=== PATIENT | male | born 1935 | race Caucasian/White ===

== ENCOUNTER 2016-05-17 08:34 | Outpatient (RCR) | payer MEDICARE ==
[2016-05-17 08:32] LABS: MEAN CORPUSCULAR HGB CONC 34.3 g/dL (31.0-37.0); MEAN PLATELET VOLUME 10.2 FL (6.0-9.5); PLATELET COUNT 155 10^3uL (150-450); WHITE BLOOD COUNT 2.88 10^3uL (4.0-11.0)
[~2016-05-17 08:34] MED LIST: ASPI-586 PO; CEPH-507 PO; CLOP75TA3 PO; INDA1.25 PO; LISI10TA PO; OMG1KC PO; VIT1CAPS16 PO; VIT1TABL57 PO; VITAMIN; [UNRECOGNIZED DRUG - CODE] PO
[2016-05-17 08:39] LABS: MEAN CORPUSCULAR HEMOGLOBIN 34.2 PG (26.0-34.0); MEAN CORPUSCULAR VOLUME 100 FL (80-100)
[2016-05-17 09:41] LABS: BAND NEUTROPHILS % 0 % (0-6); SEGMENTED NEUTROPHILS % 20 % (51-67)
[2016-05-17 09:42] LABS: ANISOCYTOSIS SLIGHT; EOSINOPHILS % 6 % (0-4); LYMPHOCYTES # 1.5 #; MONOCYTES # 0.4 #; MONOCYTES % 19 % (3-11); RBC MORPH SEE REFERENCE (NORMAL); TOTAL CELLS COUNTED 100
[2016-05-31 08:30] LABS: MEAN PLATELET VOLUME 11.6 FL (6.0-9.5); PLATELET COUNT 149 10^3uL (150-450); WHITE BLOOD COUNT 2.63 10^3uL (4.0-11.0)
[2016-05-31 08:35] LABS: MEAN CORPUSCULAR HEMOGLOBIN 33.9 PG (26.0-34.0); MEAN CORPUSCULAR VOLUME 100 FL (80-100)
[2016-05-31 08:57] LABS: ANISOCYTOSIS SLIGHT; BAND NEUTROPHILS % 0 % (0-6); EOSINOPHILS % 6 % (0-4); LYMPHOCYTES # 1.4 #; MONOCYTES # 0.4 #; MONOCYTES % 19 % (3-11); RBC MORPH SEE REFERENCE (NORMAL); SEGMENTED NEUTROPHILS % 20 % (51-67); TOTAL CELLS COUNTED 100
[2016-06-14 08:07] LABS: MEAN CORPUSCULAR HGB CONC 34.1 g/dL (31.0-37.0); PLATELET COUNT 152 10^3uL (150-450); WHITE BLOOD COUNT 2.58 10^3uL (4.0-11.0)
[2016-06-14 08:23] LABS: MEAN CORPUSCULAR VOLUME 100 FL (80-100)
[2016-06-14 08:37] LABS: BAND NEUTROPHILS % 0 % (0-6); EOSINOPHILS % 3 % (0-4); LYMPHOCYTES # 1.2 #; MONOCYTES # 0.3 #; MONOCYTES % 17 % (3-11); SEGMENTED NEUTROPHILS % 31 % (51-67); TOTAL CELLS COUNTED 100
[2016-06-14 08:38] LABS: ANISOCYTOSIS SLIGHT; RBC MORPH SEE REFERENCE (NORMAL)
[2016-06-28 08:29] LABS: MEAN CORPUSCULAR HGB CONC 33.9 g/dL (31.0-37.0); MEAN PLATELET VOLUME 12.4 FL (6.0-9.5); PLATELET COUNT 150 10^3uL (150-450); WHITE BLOOD COUNT 2.16 10^3uL (4.0-11.0)
[2016-06-28 09:26] LABS: MEAN CORPUSCULAR HEMOGLOBIN 33.7 PG (26.0-34.0); MEAN CORPUSCULAR VOLUME 99 FL (80-100)
[2016-06-28 09:27] LABS: BAND NEUTROPHILS % 1 % (0-6); EOSINOPHILS % 7 % (0-4); LYMPHOCYTES # 1.1 #; MONOCYTES # 0.5 #; MONOCYTES % 25 % (3-11); SEGMENTED NEUTROPHILS % 14 % (51-67); TOTAL CELLS COUNTED 100
[2016-06-28 09:28] LABS: RBC MORPH NORMAL (NORMAL)
[2016-07-05 09:38] LABS: MEAN CORPUSCULAR HGB CONC 34.2 g/dL (31.0-37.0); MEAN PLATELET VOLUME 11.3 FL (6.0-9.5); PLATELET COUNT 130 10^3uL (150-450); WHITE BLOOD COUNT 2.25 10^3uL (4.0-11.0)
[2016-07-05 09:40] LABS: MEAN CORPUSCULAR VOLUME 99 FL (80-100)
[2016-07-05 09:47] LABS: BAND NEUTROPHILS % 0 % (0-6); EOSINOPHILS % 1 % (0-4); LYMPHOCYTES # 1.3 #; MONOCYTES # 0.2 #; MONOCYTES % 12 % (3-11); SEGMENTED NEUTROPHILS % 26 % (51-67); TOTAL CELLS COUNTED 100
[2016-07-05 09:48] LABS: RBC MORPH NORMAL (NORMAL)
[2016-07-12 09:31] LABS: MEAN CORPUSCULAR HGB CONC 33.4 g/dL (31.0-37.0); MEAN PLATELET VOLUME 11.3 FL (6.0-9.5); PLATELET COUNT 142 10^3uL (150-450); WHITE BLOOD COUNT 2.37 10^3uL (4.0-11.0)
[2016-07-12 09:43] LABS: MEAN CORPUSCULAR HEMOGLOBIN 33.3 PG (26.0-34.0); MEAN CORPUSCULAR VOLUME 100 FL (80-100)
[2016-07-12 11:17] LABS: BAND NEUTROPHILS % 0 % (0-6); EOSINOPHILS % 4 % (0-4); LYMPHOCYTES # 1.1 #; MONOCYTES # 0.5 #; MONOCYTES % 26 % (3-11); RBC MORPH NORMAL (NORMAL); SEGMENTED NEUTROPHILS % 22 % (51-67); TOTAL CELLS COUNTED 100
[2016-07-19 08:19] LABS: MEAN CORPUSCULAR HGB CONC 33.7 g/dL (31.0-37.0); MEAN PLATELET VOLUME 10.7 FL (6.0-9.5); PLATELET COUNT 134 10^3uL (150-450); WHITE BLOOD COUNT 2.33 10^3uL (4.0-11.0)
[2016-07-19 08:40] LABS: MEAN CORPUSCULAR HEMOGLOBIN 33.5 PG (26.0-34.0); MEAN CORPUSCULAR VOLUME 99 FL (80-100)
[2016-07-19 08:45] LABS: BAND NEUTROPHILS % 2 % (0-6); EOSINOPHILS % 2 % (0-4); LYMPHOCYTES # 1.2 #; MONOCYTES # 0.3 #; MONOCYTES % 13 % (3-11); RBC MORPH NORMAL (NORMAL); SEGMENTED NEUTROPHILS % 30 % (51-67); TOTAL CELLS COUNTED 100
[2016-07-26 08:47] LABS: MEAN CORPUSCULAR HGB CONC 33.2 g/dL (31.0-37.0); MEAN PLATELET VOLUME 10.9 FL (6.0-9.5); PLATELET COUNT 143 10^3uL (150-450); WHITE BLOOD COUNT 2.96 10^3uL (4.0-11.0)
[2016-07-26 09:06] LABS: MEAN CORPUSCULAR HEMOGLOBIN 33.5 PG (26.0-34.0); MEAN CORPUSCULAR VOLUME 101 FL (80-100)
[2016-07-26 09:15] LABS: BAND NEUTROPHILS % 0 % (0-6); EOSINOPHILS % 7 % (0-4); LYMPHOCYTES # 1.3 #; MONOCYTES # 0.5 #; MONOCYTES % 23 % (3-11); RBC MORPH NORMAL (NORMAL); SEGMENTED NEUTROPHILS % 26 % (51-67); TOTAL CELLS COUNTED 100
[2016-08-03 08:34] LABS: MEAN CORPUSCULAR HGB CONC 33.6 g/dL (31.0-37.0); MEAN PLATELET VOLUME 10.7 FL (6.0-9.5); PLATELET COUNT 131 10^3uL (150-450); WHITE BLOOD COUNT 2.18 10^3uL (4.0-11.0)
[2016-08-03 08:38] LABS: MEAN CORPUSCULAR HEMOGLOBIN 33.9 PG (26.0-34.0); MEAN CORPUSCULAR VOLUME 101 FL (80-100)
[2016-08-03 08:53] LABS: BAND NEUTROPHILS % 0 % (0-6); EOSINOPHILS % 2 % (0-4); LYMPHOCYTES # 1.3 #; MONOCYTES # 0.2 #; MONOCYTES % 12 % (3-11); RBC MORPH NORMAL (NORMAL); SEGMENTED NEUTROPHILS % 22 % (51-67); TOTAL CELLS COUNTED 100
[2016-08-03 13:14] LABS: ANION GAP 14.9 MEQ/L (3-15)
[2016-08-10 08:40] LABS: MEAN CORPUSCULAR HGB CONC 34.2 g/dL (31.0-37.0); PLATELET COUNT 136 10^3uL (150-450); WHITE BLOOD COUNT 2.48 10^3uL (4.0-11.0)
[2016-08-10 08:51] LABS: MEAN CORPUSCULAR HEMOGLOBIN 34.1 PG (26.0-34.0); MEAN CORPUSCULAR VOLUME 100 FL (80-100)
[2016-08-10 09:45] LABS: BAND NEUTROPHILS % 1 % (0-6); EOSINOPHILS % 4 % (0-4); LYMPHOCYTES # 1.3 #; MONOCYTES # 0.4 #; MONOCYTES % 18 % (3-11); RBC MORPH NORMAL (NORMAL); SEGMENTED NEUTROPHILS % 18 % (51-67); TOTAL CELLS COUNTED 100
== END 2016-08-15 | disposition home or self-care (01) ==
LOC: LAB 08:34
PROVIDERS: ATTEND Internal Medicine Hematology & Oncology
DX: D61.818 Other pancytopenia (principal); D46.A Refractory cytopenia with multilineage dysplasia; N18.9 Chronic kidney disease, unspecified
CPT/HCPCS: 36415; 80048; 85025

== ENCOUNTER 2016-08-23 09:01 | Outpatient (RCR) | payer MEDICARE ==
[2016-08-16 08:31] LABS: MEAN CORPUSCULAR HGB CONC 34.3 g/dL (31.0-37.0); MEAN PLATELET VOLUME 10.9 FL (6.0-9.5); PLATELET COUNT 130 10^3uL (150-450); WHITE BLOOD COUNT 2.58 10^3uL (4.0-11.0)
[2016-08-16 08:33] LABS: MEAN CORPUSCULAR HEMOGLOBIN 34.2 PG (26.0-34.0); MEAN CORPUSCULAR VOLUME 100 FL (80-100)
[2016-08-16 08:41] LABS: BAND NEUTROPHILS % 0 % (0-6); EOSINOPHILS % 3 % (0-4); LYMPHOCYTES # 1.3 #; MONOCYTES # 0.3 #; MONOCYTES % 17 % (3-11); RBC MORPH NORMAL (NORMAL); SEGMENTED NEUTROPHILS % 28 % (51-67); TOTAL CELLS COUNTED 100
[2016-08-23 09:10] LABS: MEAN PLATELET VOLUME 11.1 FL (6.0-9.5); PLATELET COUNT 142 10^3uL (150-450); WHITE BLOOD COUNT 3.06 10^3uL (4.0-11.0)
[2016-08-23 09:12] LABS: MEAN CORPUSCULAR HEMOGLOBIN 33.9 PG (26.0-34.0); MEAN CORPUSCULAR VOLUME 100 FL (80-100)
[2016-08-23 09:33] LABS: BAND NEUTROPHILS % 1 % (0-6); EOSINOPHILS % 5 % (0-4); LYMPHOCYTES # 1.5 #; MONOCYTES # 0.6 #; MONOCYTES % 21 % (3-11); SEGMENTED NEUTROPHILS % 23 % (51-67); TOTAL CELLS COUNTED 100
[2016-08-23 09:34] LABS: ANISOCYTOSIS SLIGHT; RBC MORPH SEE REFERENCE (NORMAL)
[2016-08-30 08:38] LABS: MEAN CORPUSCULAR HGB CONC 34.1 g/dL (31.0-37.0); MEAN PLATELET VOLUME 10.5 FL (6.0-9.5); PLATELET COUNT 125 10^3uL (150-450); WHITE BLOOD COUNT 2.06 10^3uL (4.0-11.0)
[2016-08-30 08:58] LABS: MEAN CORPUSCULAR HEMOGLOBIN 34.2 PG (26.0-34.0); MEAN CORPUSCULAR VOLUME 100 FL (80-100)
[2016-08-30 09:13] LABS: BAND NEUTROPHILS % 1 % (0-6); EOSINOPHILS % 7 % (0-4); MONOCYTES # 0.4 #; MONOCYTES % 19 % (3-11); RBC MORPH NORMAL (NORMAL); SEGMENTED NEUTROPHILS % 25 % (51-67); TOTAL CELLS COUNTED 100
[2016-09-06 08:03] LABS: MEAN CORPUSCULAR HGB CONC 33.6 g/dL (31.0-37.0); MEAN PLATELET VOLUME 11.8 FL (6.0-9.5); PLATELET COUNT 153 10^3uL (150-450); WHITE BLOOD COUNT 2.75 10^3uL (4.0-11.0)
[2016-09-06 08:20] LABS: MEAN CORPUSCULAR HEMOGLOBIN 33.7 PG (26.0-34.0); MEAN CORPUSCULAR VOLUME 100 FL (80-100)
[2016-09-06 08:28] LABS: BAND NEUTROPHILS % 2 % (0-6); EOSINOPHILS % 4 % (0-4); LYMPHOCYTES # 1.1 #; MONOCYTES # 0.4 #; MONOCYTES % 21 % (3-11); RBC MORPH NORMAL (NORMAL); SEGMENTED NEUTROPHILS % 26 % (51-67); TOTAL CELLS COUNTED 100
[2016-09-13 08:01] LABS: MEAN CORPUSCULAR HGB CONC 33.9 g/dL (31.0-37.0); MEAN PLATELET VOLUME 10.7 FL (6.0-9.5); PLATELET COUNT 130 10^3uL (150-450); WHITE BLOOD COUNT 2.56 10^3uL (4.0-11.0)
[2016-09-13 08:03] LABS: MEAN CORPUSCULAR VOLUME 100 FL (80-100)
[2016-09-13 08:14] LABS: BAND NEUTROPHILS % 0 % (0-6); EOSINOPHILS % 1 % (0-4); LYMPHOCYTES # 1.6 #; MONOCYTES # 0.1 #; MONOCYTES % 7 % (3-11); SEGMENTED NEUTROPHILS % 27 % (51-67); TOTAL CELLS COUNTED 100
[2016-09-13 08:15] LABS: RBC MORPH NORMAL (NORMAL)
[2016-09-20 08:06] LABS: MEAN CORPUSCULAR HGB CONC 34.5 g/dL (31.0-37.0); MEAN PLATELET VOLUME 11.8 FL (6.0-9.5); PLATELET COUNT 141 10^3uL (150-450); WHITE BLOOD COUNT 2.39 10^3uL (4.0-11.0)
[2016-09-20 08:10] LABS: MEAN CORPUSCULAR HEMOGLOBIN 34.5 PG (26.0-34.0); MEAN CORPUSCULAR VOLUME 100 FL (80-100)
[2016-09-20 08:44] LABS: ANISOCYTOSIS SLIGHT; BAND NEUTROPHILS % 0 % (0-6); EOSINOPHILS % 1 % (0-4); LYMPHOCYTES # 1.3 #; MONOCYTES # 0.4 #; MONOCYTES % 22 % (3-11); RBC MORPH SEE REFERENCE (NORMAL); SEGMENTED NEUTROPHILS % 21 % (51-67); TOTAL CELLS COUNTED 100
[2016-09-28 08:11] LABS: MEAN CORPUSCULAR HGB CONC 34.7 g/dL (31.0-37.0); MEAN PLATELET VOLUME 11.3 FL (6.0-9.5); PLATELET COUNT 121 10^3uL (150-450); WHITE BLOOD COUNT 2.43 10^3uL (4.0-11.0)
[2016-09-28 08:33] LABS: MEAN CORPUSCULAR HEMOGLOBIN 34.4 PG (26.0-34.0); MEAN CORPUSCULAR VOLUME 99 FL (80-100)
[2016-09-28 08:38] LABS: BAND NEUTROPHILS % 0 % (0-6); EOSINOPHILS % 1 % (0-4); LYMPHOCYTES # 1.7 #; MONOCYTES % 0 % (3-11); SEGMENTED NEUTROPHILS % 30 % (51-67); TOTAL CELLS COUNTED 100
[2016-09-28 08:39] LABS: RBC MORPH NORMAL (NORMAL)
[2016-10-04 08:09] LABS: MEAN CORPUSCULAR HGB CONC 34.5 g/dL (31.0-37.0); MEAN PLATELET VOLUME 11.3 FL (6.0-9.5); PLATELET COUNT 138 10^3uL (150-450); WHITE BLOOD COUNT 2.99 10^3uL (4.0-11.0)
[2016-10-04 08:14] LABS: MEAN CORPUSCULAR HEMOGLOBIN 34.2 PG (26.0-34.0); MEAN CORPUSCULAR VOLUME 99 FL (80-100)
[2016-10-04 08:24] LABS: ANISOCYTOSIS SLIGHT; BAND NEUTROPHILS % 0 % (0-6); EOSINOPHILS % 2 % (0-4); LYMPHOCYTES # 1.4 #; MONOCYTES # 0.5 #; MONOCYTES % 26 % (3-11); RBC MORPH SEE REFERENCE (NORMAL); SEGMENTED NEUTROPHILS % 23 % (51-67); TOTAL CELLS COUNTED 100
[2016-10-11 07:48] LABS: MEAN CORPUSCULAR HGB CONC 34.3 g/dL (31.0-37.0); MEAN PLATELET VOLUME 11.4 FL (6.0-9.5); PLATELET COUNT 151 10^3uL (150-450); WHITE BLOOD COUNT 2.75 10^3uL (4.0-11.0)
[2016-10-11 07:52] LABS: MEAN CORPUSCULAR HEMOGLOBIN 34.2 PG (26.0-34.0); MEAN CORPUSCULAR VOLUME 100 FL (80-100)
[2016-10-11 08:16] LABS: BAND NEUTROPHILS % 0 % (0-6); EOSINOPHILS % 2 % (0-4); LYMPHOCYTES # 1.2 #; MONOCYTES # 0.4 #; MONOCYTES % 19 % (3-11); SEGMENTED NEUTROPHILS % 36 % (51-67); TOTAL CELLS COUNTED 100
[2016-10-11 08:17] LABS: ANISOCYTOSIS SLIGHT; RBC MORPH SEE REFERENCE (NORMAL)
[2016-10-18 08:10] LABS: MEAN CORPUSCULAR HGB CONC 33.3 g/dL (31.0-37.0); MEAN PLATELET VOLUME 11.1 FL (6.0-9.5); PLATELET COUNT 139 10^3uL (150-450); WHITE BLOOD COUNT 2.73 10^3uL (4.0-11.0)
[2016-10-18 08:11] LABS: MEAN CORPUSCULAR HEMOGLOBIN 33.5 PG (26.0-34.0); MEAN CORPUSCULAR VOLUME 101 FL (80-100)
[2016-10-18 08:23] LABS: ANISOCYTOSIS SLIGHT; BAND NEUTROPHILS % 0 % (0-6); EOSINOPHILS % 4 % (0-4); LYMPHOCYTES # 1.4 #; MONOCYTES # 0.4 #; MONOCYTES % 18 % (3-11); RBC MORPH SEE REFERENCE (NORMAL); SEGMENTED NEUTROPHILS % 25 % (51-67); TOTAL CELLS COUNTED 100
[2016-10-25 07:47] LABS: MEAN CORPUSCULAR HGB CONC 33.6 g/dL (31.0-37.0); MEAN PLATELET VOLUME 11.4 FL (6.0-9.5); PLATELET COUNT 134 10^3uL (150-450); WHITE BLOOD COUNT 2.95 10^3uL (4.0-11.0)
[2016-10-25 07:51] LABS: MEAN CORPUSCULAR HEMOGLOBIN 33.5 PG (26.0-34.0); MEAN CORPUSCULAR VOLUME 100 FL (80-100)
[2016-10-25 07:58] LABS: BAND NEUTROPHILS % 0 % (0-6); EOSINOPHILS % 0 % (0-4); LYMPHOCYTES # 1.5 #; MONOCYTES # 0.3 #; MONOCYTES % 15 % (3-11); RBC MORPH NORMAL (NORMAL); SEGMENTED NEUTROPHILS % 34 % (51-67); TOTAL CELLS COUNTED 100
[2016-11-01 08:08] LABS: MEAN CORPUSCULAR HGB CONC 33.1 g/dL (31.0-37.0); PLATELET COUNT 143 10^3uL (150-450); WHITE BLOOD COUNT 2.93 10^3uL (4.0-11.0)
[2016-11-01 08:16] LABS: MEAN CORPUSCULAR HEMOGLOBIN 33.3 PG (26.0-34.0); MEAN CORPUSCULAR VOLUME 101 FL (80-100)
[2016-11-01 08:28] LABS: BAND NEUTROPHILS % 0 % (0-6); SEGMENTED NEUTROPHILS % 24 % (51-67)
[2016-11-01 08:29] LABS: ANISOCYTOSIS SLIGHT; EOSINOPHILS % 3 % (0-4); LYMPHOCYTES # 1.5 #; MONOCYTES # 0.4 #; MONOCYTES % 21 % (3-11); RBC MORPH SEE REFERENCE (NORMAL); TOTAL CELLS COUNTED 100
[2016-11-08 08:04] LABS: MEAN CORPUSCULAR HGB CONC 33.4 g/dL (31.0-37.0); PLATELET COUNT 144 10^3uL (150-450); WHITE BLOOD COUNT 2.56 10^3uL (4.0-11.0)
[2016-11-08 08:07] LABS: MEAN CORPUSCULAR HEMOGLOBIN 33.6 PG (26.0-34.0); MEAN CORPUSCULAR VOLUME 101 FL (80-100)
[2016-11-08 08:22] LABS: BAND NEUTROPHILS % 0 % (0-6); EOSINOPHILS % 5 % (0-4); LYMPHOCYTES # 1.4 #; MONOCYTES # 0.2 #; MONOCYTES % 8 % (3-11); RBC MORPH NORMAL (NORMAL); SEGMENTED NEUTROPHILS % 33 % (51-67); TOTAL CELLS COUNTED 100
[2016-11-15 08:22] LABS: MEAN CORPUSCULAR HGB CONC 33.1 g/dL (31.0-37.0); MEAN PLATELET VOLUME 11.2 FL (6.0-9.5); PLATELET COUNT 131 10^3uL (150-450)
[2016-11-15 08:24] LABS: MEAN CORPUSCULAR HEMOGLOBIN 33.2 PG (26.0-34.0); MEAN CORPUSCULAR VOLUME 100 FL (80-100)
[2016-11-15 08:42] LABS: BAND NEUTROPHILS % 2 % (0-6); EOSINOPHILS % 4 % (0-4); LYMPHOCYTES # 1.3 #; MONOCYTES # 0.4 #; MONOCYTES % 19 % (3-11); SEGMENTED NEUTROPHILS % 29 % (51-67); TOTAL CELLS COUNTED 100
[2016-11-15 08:43] LABS: ANISOCYTOSIS SLIGHT; RBC MORPH SEE REFERENCE (NORMAL)
== END 2016-11-21 | disposition home or self-care (01) ==
LOC: LAB 09:01
PROVIDERS: ATTEND Internal Medicine Hematology & Oncology
DX: D61.818 Other pancytopenia (principal); D46.A Refractory cytopenia with multilineage dysplasia
CPT/HCPCS: 36415; 85025

== ENCOUNTER 2016-11-22 08:20 | Outpatient (RCR) | payer MEDICARE ==
[2016-11-22 08:30] LABS: MEAN CORPUSCULAR HGB CONC 33.1 g/dL (31.0-37.0); MEAN PLATELET VOLUME 11.7 FL (6.0-9.5); PLATELET COUNT 124 10^3uL (150-450); WHITE BLOOD COUNT 2.55 10^3uL (4.0-11.0)
[2016-11-22 08:41] LABS: MEAN CORPUSCULAR HEMOGLOBIN 33.2 PG (26.0-34.0); MEAN CORPUSCULAR VOLUME 100 FL (80-100)
[2016-11-22 08:49] LABS: BAND NEUTROPHILS % 0 % (0-6); SEGMENTED NEUTROPHILS % 27 % (51-67)
[2016-11-22 08:50] LABS: EOSINOPHILS % 4 % (0-4); LYMPHOCYTES # 1.4 #; MONOCYTES # 0.2 #; MONOCYTES % 12 % (3-11); TOTAL CELLS COUNTED 100
[2016-11-22 08:51] LABS: RBC MORPH NORMAL (NORMAL)
[2016-11-29 08:12] LABS: MEAN CORPUSCULAR HGB CONC 33.7 g/dL (31.0-37.0); PLATELET COUNT 148 10^3uL (150-450); WHITE BLOOD COUNT 2.95 10^3uL (4.0-11.0)
[2016-11-29 08:28] LABS: MEAN CORPUSCULAR HEMOGLOBIN 33.5 PG (26.0-34.0); MEAN CORPUSCULAR VOLUME 100 FL (80-100)
[2016-11-29 08:35] LABS: BAND NEUTROPHILS % 1 % (0-6); EOSINOPHILS % 3 % (0-4); LYMPHOCYTES # 1.5 #; MONOCYTES # 0.4 #; MONOCYTES % 19 % (3-11); SEGMENTED NEUTROPHILS % 27 % (51-67); TOTAL CELLS COUNTED 100
[2016-11-29 08:36] LABS: ANISOCYTOSIS SLIGHT; RBC MORPH SEE REFERENCE (NORMAL)
[2016-12-06 08:05] LABS: MEAN CORPUSCULAR HGB CONC 33.1 g/dL (31.0-37.0); MEAN PLATELET VOLUME 10.8 FL (6.0-9.5); PLATELET COUNT 136 10^3uL (150-450); WHITE BLOOD COUNT 2.61 10^3uL (4.0-11.0)
[2016-12-06 08:10] LABS: MEAN CORPUSCULAR VOLUME 100 FL (80-100)
[2016-12-06 08:17] LABS: BAND NEUTROPHILS % 0 % (0-6); EOSINOPHILS % 3 % (0-4); LYMPHOCYTES # 1.5 #; MONOCYTES # 0.3 #; MONOCYTES % 13 % (3-11); RBC MORPH NORMAL (NORMAL); SEGMENTED NEUTROPHILS % 26 % (51-67); TOTAL CELLS COUNTED 100
[2016-12-13 08:03] LABS: MEAN CORPUSCULAR HGB CONC 33.3 g/dL (31.0-37.0); MEAN PLATELET VOLUME 11.9 FL (6.0-9.5); PLATELET COUNT 143 10^3uL (150-450); WHITE BLOOD COUNT 2.46 10^3uL (4.0-11.0)
[2016-12-13 08:05] LABS: MEAN CORPUSCULAR HEMOGLOBIN 33.2 PG (26.0-34.0); MEAN CORPUSCULAR VOLUME 100 FL (80-100)
[2016-12-13 08:31] LABS: ANISOCYTOSIS SLIGHT; BAND NEUTROPHILS % 0 % (0-6); EOSINOPHILS % 3 % (0-4); LYMPHOCYTES # 1.4 #; MONOCYTES # 0.4 #; MONOCYTES % 22 % (3-11); RBC MORPH SEE REFERENCE (NORMAL); SEGMENTED NEUTROPHILS % 18 % (51-67); TOTAL CELLS COUNTED 100
[2016-12-20 08:12] LABS: MEAN CORPUSCULAR HGB CONC 33.6 g/dL (31.0-37.0); PLATELET COUNT 137 10^3uL (150-450)
[2016-12-20 08:16] LABS: MEAN CORPUSCULAR HEMOGLOBIN 33.1 PG (26.0-34.0); MEAN CORPUSCULAR VOLUME 99 FL (80-100)
[2016-12-20 08:46] LABS: BAND NEUTROPHILS % 1 % (0-6); EOSINOPHILS % 1 % (0-4); LYMPHOCYTES # 2.1 #; MONOCYTES # 0.2 #; MONOCYTES % 5 % (3-11); SEGMENTED NEUTROPHILS % 26 % (51-67)
[2016-12-20 08:47] LABS: RBC MORPH NORMAL (NORMAL); TOTAL CELLS COUNTED 100
[2016-12-27 08:16] LABS: MEAN CORPUSCULAR HEMOGLOBIN 32.9 PG (26.0-34.0); MEAN CORPUSCULAR HGB CONC 33.4 g/dL (31.0-37.0); MEAN CORPUSCULAR VOLUME 98 FL (80-100); MEAN PLATELET VOLUME 11.4 FL (6.0-9.5); PLATELET COUNT 138 10^3uL (150-450); WHITE BLOOD COUNT 2.56 10^3uL (4.0-11.0)
[2016-12-27 08:40] LABS: ANISOCYTOSIS SLIGHT; BAND NEUTROPHILS % 0 % (0-6); EOSINOPHILS % 5 % (0-4); LYMPHOCYTES # 1.1 #; MONOCYTES # 0.4 #; MONOCYTES % 21 % (3-11); RBC MORPH SEE REFERENCE (NORMAL); SEGMENTED NEUTROPHILS % 29 % (51-67); TOTAL CELLS COUNTED 100
== END 2017-01-05 19:15 | disposition home or self-care (01) ==
LOC: LAB 08:20
PROVIDERS: ATTEND Internal Medicine Hematology & Oncology
DX: D46.A Refractory cytopenia with multilineage dysplasia (principal); D61.818 Other pancytopenia
CPT/HCPCS: 36415; 85007; 85025

== ENCOUNTER → 2017-01-04 | Outpatient (CLI) | payer MEDICARE ==
[2017-01-04 08:24] LABS: MEAN CORPUSCULAR HGB CONC 33.5 g/dL (31.0-37.0); MEAN PLATELET VOLUME 11.2 FL (6.0-9.5); PLATELET COUNT 144 10^3uL (150-450); WHITE BLOOD COUNT 2.37 10^3uL (4.0-11.0)
[2017-01-04 08:26] LABS: MEAN CORPUSCULAR HEMOGLOBIN 33.3 PG (26.0-34.0); MEAN CORPUSCULAR VOLUME 99 FL (80-100)
[2017-01-04 09:25] LABS: ANISOCYTOSIS SLIGHT; BAND NEUTROPHILS % 0 % (0-6); EOSINOPHILS % 2 % (0-4); LYMPHOCYTES # 1.3 #; MONOCYTES # 0.5 #; MONOCYTES % 25 % (3-11); SEGMENTED NEUTROPHILS % 15 % (51-67); TOTAL CELLS COUNTED 100
[2017-01-04 09:26] LABS: RBC MORPH SEE REFERENCE (NORMAL)
== END ==
LOC: LAB 08:12
PROVIDERS: ATTEND Internal Medicine Hematology & Oncology
DX: D46.A Refractory cytopenia with multilineage dysplasia (principal)
CPT/HCPCS: 36415; 85025